=== PATIENT | male | born 1980 | race Caucasian/White ===

== ENCOUNTER 2025-06-29 13:05 | Emergency (ER) | payer OTHER, SELFPAY ==
[2025-06-29] VITALS (8 sets, daily range): BP systolic 152–176; BP diastolic 105–118; BMI 26.8
--- NOTE | 2025-06-29 13:33 | ED.GENMED ---
History of Present Illness
General
Chief Complaint: Abnormal Lab Value
Source: patient
Exam Limitations: none
Time Seen by Provider: 06/29/25 13:14
History of Present Illness
History of Present Illness:
44yoM with no significant past medical history presenting for evaluation of nausea and vomiting. Patient had hematospermia about a week and a half ago. He has been following with urology for this and has been extremely anxious regarding his
symptoms. He started to experience nausea and vomiting shortly after this which he attributes to his extreme anxiety. He has not eating and is barely drinking due to his symptoms. He has vomited about 4-5 times so far today. He was seen at
urgent care prior to arrival and had blood work done. Labs showed a potassium of 3.1, sodium 130, and creatinine of 1.4. He was sent to the ED for IV fluids. Patient is requesting a medication for anxiety to help him get him through this
situation. He denies any significant anxiety prior to this episode. No abdominal pain, hematemesis, diarrhea, fevers, chest pain, shortness of breath.
Phy Exam
General Physical Exam
General Presentation: well appearing and no apparent distress
General Skin: warm and dry
General Habitus: normal
General Mental: alert
ENT Exam
ENT Exam: normocephalic
Cardiovascular Exam
Cardiovascular Exam: regular rate/rhythm
Pulmonary Exam
Pulmonary Exam: lungs clear, no respiratory distress, no rales, no crackles, no rhonchi and no wheezing
Gastrointestinal Exam
Gastrointestinal Exam: non tender, soft and non distended
Neurological Exam
Neurological Exam: alert
Cody Coma Scale
Eye Opening: Spontaneous
Verbal Response: Oriented
Motor Response: Obeys Commands
GCS Total Score: 15
Skin Exam
Skin Exam: normal color and warm/dry
Psychiatric Exam
Psychiatric Exam: anxious
Course
Orders/Labs/Results
Orders:
Orders
06/29/25 13:25
Crisis Consult Urgent
Reason for Consult: anxiety
0.9% Sodium Chloride 1000 ml [Nss] 1,000 ml IV BOLUS
diazePAM [Valium Injection] 2 mg IV NOW STA
06/29/25 13:31
Complete Blood Count/With Diff Urgent
Comprehensive Metabolic Panel Urgent
Lipase Urgent
Magnesium Urgent
06/29/25 14:05
0.9% Sodium Chloride 1000 ml [Nss] 1,000 ml IV BOLUS
Potassium Chloride [KCl] 40 meq PO NOW STA
US Abdomen Complete/Upper Urgent
Comment:
Reason For Exam: elevated LFTs, vomiting
Abnormal Lab Results
06/29/25
13:31
MCV 94.6 H fL
(80.0-94.0)
MCH 32.9 H pg
(27.0-31.0)
MPV 10.5 H fL
(7.4-10.4)
Absolute Neuts (auto) 7.1 H 10^3/uL
(1.4-6.5)
Absolute Lymphs (auto) 0.3 L 10^3/uL
(1.2-3.4)
Absolute Monos (auto) 1.0 H 10^3/uL
(0.1-0.6)
Neutrophils % 84.4 H %
(42.2-75.2)
Lymphocytes % 3.5 L %
(20.5-51.1)
Monocytes % 11.7 H %
(1.7-9.3)
Sodium 130 L mmol/L
(135-145)
Potassium 3.4 L mmol/L
(3.5-5.1)
Chloride 80 L mmol/L
(98-107)
Carbon Dioxide 32 H mmol/L
(22-30)
BUN 40 H mg/dl
(9-20)
Glucose 126 H mg/dl
(70-99)
Calcium 10.3 H mg/dl
(8.4-10.2)
Total Bilirubin 3.6 H mg/dl
(0.2-1.3)
AST 127 H U/L
(17-59)
ALT 151 H U/L
(0-50)
Total Protein 9.0 H g/dl
(6.3-8.2)
Albumin 5.6 H g/dl
(3.5-5.0)
Lipase 554 H U/L
(23-300)
06/29/25 13:31
06/29/25 13:31
Vital Signs
Initial and Last Documented VS:
Initial Vital Signs
Temp Pulse Resp BP Pulse Ox
98.1 F 110 16 152/112 96
06/29/25 13:07 06/29/25 13:07 06/29/25 13:07 06/29/25 13:07 06/29/25 13:07
Last Documented Vital Signs
Temp Pulse Resp BP Pulse Ox
98.5 F 92 18 152/113 99
06/29/25 15:20 06/29/25 17:03 06/29/25 17:03 06/29/25 17:03 06/29/25 17:30
MDM/Problems Addressed
Differential Diagnosis Includes:
44yoM here with n/v x 1 week. Believes it is from extreme anxiety that he is having from recent episode of hematospermia. Labs are urgent care concerning for dehydration and he was sent to the ED. Patient anxious on exam but otherwise well
appearing. Abdominal exam is benign. Differential diagnosis includes but is not limited to: dehydration, JANES, gastroenteritis
Initial ED plan: Check abdominal labs and magnesium. IV Valium for anxiety and fluid bolus. Will consult crisis for outpatient resources.
*Pulse Oximetry
SaO2: 96
Oxygen Mode of Delivery: Room air
Patient hypoxic: no
*Critical Care Note
Total Time (30-74mins, 75-104mins- exclusive of procedures): Not Applicable
Update Note
Update Note:
Labs reveal a sodium of 130, potassium 3.4 and chloride of 80. Creatinine 1.0. Transaminitis also noted with AST 127, ALT 151, and total bilirubin of 3.6. Unclear significance as he is not having any abdominal pain. Upper abdominal ultrasound added
which shows evidence of fatty liver. No evidence of cholelithiasis or cholecystitis. No biliary ductal dilatation. There may be incidental R renal lobulation but radiology cannot rule out solid renal mass. Findings discussed with patient. Offered to
obtain CT for further evaluation but he prefers to follow up with urology next week as previously scheduled to discuss this. Patient received 2L NS during ED stay. He is feeling significantly improved on reassessment and has been tolerating PO
fluids without issue. Patient stable for discharge. He is requesting anxiety medication. Will provide very short course of Ativan. He was advised to only take this as absolutely necessary and we discussed risk of dependence. He denies any history of
drug/alcohol abuse. Patient advised to f/u with PCP and urology. ED return precautions reviewed and he was discharged in stable condition.
ED Attending Note
-
Portions of this chart may have been created with voice recognition software.� Occasional wrong word or��sound alike� substitutions may have occurred due to the inherent limitations of voice recognition software.
Discharge Plan
Departure
Patient Disposition: Home (Routine Discharge)
Date of Disposition: 06/29/25
Time of Disposition: 17:36
Patient with high blood pressure during this ER visit?: Yes
Discharge Problem:
Nausea & vomiting, Anxiety, Abnormal ultrasound of right kidney, Transaminitis
Instructions: Acute Nausea and Vomiting
Prescriptions:
New
lorazepam 1 mg tablet
1 mg PO BID PRN (Reason: anxiety) Qty: 6 0RF
Referrals:
[facility] [Provider Group]
NONE,* [Family Provider, Internal Medicine]
Activity Restrictions/Additional Instructions:
Take Zofran as needed for nausea. Take Ativan only as needed for severe anxiety. Do not take this with alcohol or drive after taking this medication.
Please follow-up with urology next week as previously scheduled and discuss the abnormality seen on your right kidney.
You should also see a family doctor to establish care and have repeat blood work to monitor your liver enzymes.
Return to the ER with any new or worsening symptoms.
Interventions
Interventions:
*Risk Screen - Suicide Last Done: 06/29/25 13:41
*General Assessment Last Done: 06/29/25 13:41
*Neglect/Abuse Screening Last Done: 06/29/25 13:41
*ED- Fall Risk Assessment Last Done: 06/29/25 13:41
*ED COVID-19 Vaccine History Last Done: 06/29/25 15:18
*ED Influenza Vaccine History Last Done: 06/29/25 15:18
*Nursing Disposition Last Done: 06/29/25 17:44
Discharge Date and Time
Discharge Date/Time: 06/29/25 17:46
Print Language: SLOVAK
[2025-06-29] MEDS: VALIUM INJECTION 2 MG IV (13:40)
[2025-06-29] MEDS: NSS 1000 IV ×2 (13:40→14:25)
[2025-06-29 13:57] LABS: Hematocrit 45.4 % (39.0-52.0); Hemoglobin 15.8 g/dL (13.0-18.0); Mean Corp Hgb Conc. 34.8 g/dL (33.0-37.0); Mean Corpuscular Volume 94.6 fL (80.0-94.0); Nucleated Red Blood Cells % 0 % (-); Platelet Count 140 10^3/uL (130-400); Red Cell Dist. Width 12.4 % (11.5-14.5)
[2025-06-29 14:00] LABS: ALT (SGPT) 151 U/L (0-50); AST (SGOT) 127 U/L (17-59); Albumin 5.6 g/dl (3.5-5.0); Alkaline Phosphatase 66 U/L (38-126); Blood Urea Nitrogen 40 mg/dl (9-20); Calcium 10.3 mg/dl (8.4-10.2); Carbon Dioxide 32 mmol/L (22-30); Chloride 80 mmol/L (98-107); Estimated Creatinine Clearance 98 ml/min; Glucose 126 mg/dl (70-99); Lipase 554 U/L (23-300); Magnesium 2.0 mg/dl (1.6-2.3); Potassium 3.4 mmol/L (3.5-5.1); Sodium 130 mmol/L (135-145); Total Protein 9.0 g/dl (6.3-8.2); eGFR > 60.00
[2025-06-29] MEDS: KCL 40 MEQ PO (14:25)
== END 2025-06-29 17:46 | disposition home or self-care (01) ==
LOC: EMR 13:05
PROVIDERS: Physician Assistant; EMERGENCY PHYSICIAN Emergency Medicine
DX: R11.2 Nausea with vomiting, unspecified (principal); F41.9 Anxiety disorder, unspecified; R93.5 Abnormal findings on diagnostic imaging of other abdominal regions, including retroperitoneum; R74.01 Elevation of levels of liver transaminase levels; R03.0 Elevated blood-pressure reading, without diagnosis of hypertension
CPT/HCPCS: 99284; 96374; 96361 ×2; 76700; 80053; 83690; 83735; 85025